=== PATIENT | female | born 1990 | race Caucasian/White ===

== ENCOUNTER → 2017-08-15 | Outpatient (CLI) | payer BC ==
[~2017-08-15] MED LIST: NORGTAB36 PO
[2017-08-15 15:19] LABS: URINE APPEARANCE TURBID (CLEAR); URINE BILIRUBIN NEG (NEG); URINE COLOR YELLOW; URINE EPITHELIAL CELL AUTO >30 /lpf (0-5); URINE NITRITE NEG (NEG); URINE SPECIFIC GRAVITY 1.031 (1.000-1.030); UROBILINOGEN NEG (NEG)
[2017-08-15 15:26] LABS: MANUAL MICROSCOPIC REQUIRED? NO; REVIEW REQ? NO
== END | disposition home or self-care (01) ==
LOC: C.LABSPEC 13:33
PROVIDERS: ATTEND Obstetrics & Gynecology
DX: Z34.01 Encounter for supervision of normal first pregnancy, first trimester (principal)

== ENCOUNTER → 2017-08-22 | Outpatient (CLI) | payer BC | END | disposition home or self-care (01) | LOC: C.PAPS 08:31 | PROVIDERS: ATTEND Obstetrics & Gynecology | DX: O30.043 Twin pregnancy, dichorionic/diamniotic, third trimester (principal); Z3A.00 Weeks of gestation of pregnancy not specified ==

== ENCOUNTER → 2017-08-22 | Outpatient (CLI) | payer BC ==
[2017-08-22 17:43] LABS: BASO % 0.3 %; BASO ABS # 0.02 K/uL (0-0.2); COMPLETE YES; EOS % 0.4 %; HEMATOCRIT 37.1 % (37-47); IG% 0.1 %; LYMPH % 20.5 %; LYMPH ABS # 1.53 K/uL (1.2-3.4); MEAN CELL VOLUME 93.5 fL (80-100); MEAN CORPUSCULAR HEMOGLOBIN 32.7 pg (25-34); MEAN PLATELET VOLUME 10.5 fL (7.4-10.4); MONO % 8.4 %; NEUT % 70.3 %; PLATELET COUNT 202 K/uL (130-400); RED BLOOD COUNT 3.97 M/uL (4.2-5.4); WHITE BLOOD COUNT 7.46 K/uL (4.8-10.8)
[2017-08-26 07:27] LABS: CHLAMYDIA TRACH RNA*** NOT DETECTED (NOT DETECTED); GC (NEIS GONORRHOEAE)RNA** NOT DETECTED (NOT DETECTED)
== END | disposition home or self-care (01) ==
LOC: C.LAB1850 16:34
PROVIDERS: ATTEND Obstetrics & Gynecology
DX: Z34.01 Encounter for supervision of normal first pregnancy, first trimester (principal); Z3A.00 Weeks of gestation of pregnancy not specified

== ENCOUNTER → 2017-10-17 | Outpatient (CLI) | payer BC | END | disposition home or self-care (01) | LOC: C.LAB1850 16:26 | PROVIDERS: ATTEND Obstetrics & Gynecology | DX: O30.042 Twin pregnancy, dichorionic/diamniotic, second trimester (principal); Z3A.00 Weeks of gestation of pregnancy not specified ==

== ENCOUNTER 2017-12-22 20:45 | Outpatient (CLI) | payer BC | END 2017-12-22 21:30 | disposition home or self-care (01) | LOC: C.LD 20:45 → C.OPB 20:45 | PROVIDERS: ATTEND Obstetrics & Gynecology | DX: O26.892 Other specified pregnancy related conditions, second trimester (principal); O30.042 Twin pregnancy, dichorionic/diamniotic, second trimester; Z3A.25 25 weeks gestation of pregnancy ==

== ENCOUNTER 2018-01-06 17:39 | Outpatient (CLI) | payer BC ==
[~2018-01-06] VITALS: Ht 165.1 cm; Wt 85.3 kg
[2018-01-06] MEDS ORDERED: PRENTAB26 PO (19:08)
[2018-01-06 19:09] VITALS: Ht 165.1 cm; Wt 85.3 kg
[2018-01-06] MEDS ORDERED: BETAMETH SOD PHOS/ACETATE IA 6 MG/ML ONE (20:11)
[2018-01-06] MEDS ORDERED: FLUCONAZOLE 50 MG TAB PO SCH (20:15)
[2018-01-06] MEDS ORDERED: BETAMETH SOD PHOS/ACETATE IA 6 MG/ML IM ONE (20:15)
[2018-01-07] MEDS ORDERED: NYSTATIN CR 15 GM TUBE EXT SCH (08:00)
== END 2018-01-06 21:10 | disposition home or self-care (01) ==
LOC: C.OPB 17:39 → C.LD 17:41 → C.OPB 21:10
PROVIDERS: ATTEND Obstetrics & Gynecology
DX: O26.899 Other specified pregnancy related conditions, unspecified trimester (principal); N89.8 Other specified noninflammatory disorders of vagina; O30.049 Twin pregnancy, dichorionic/diamniotic, unspecified trimester; Z3A.00 Weeks of gestation of pregnancy not specified

== ENCOUNTER 2018-01-07 19:45 | Outpatient (CLI) | payer BC ==
[~2018-01-07 19:45] MED LIST changes: -NORGTAB36 PO; +PRENTAB26 PO
[2018-01-07] MEDS ORDERED: BETAMETH SOD PHOS/ACETATE IA 6 MG/ML ONE (19:54)
[2018-01-07] MEDS ORDERED: BETAMETH SOD PHOS/ACETATE IA 6 MG/ML IM SCH (20:00)
--- NOTE | 2018-01-16 07:49 | EDITING REQUIRED CODING QUERY ---
DIAGNOSIS NEEDED To promote full compliance with coding requirements relating to patient care, physician participation is requested in all cases of systems programmer uncertainty. Please assist us with the question(s) below: Coding Question: The patient received care in labor and delivery on 01/07/18 as noted within the record. Please document the diagnosis that is being addressed by the medication/treatment. Provider Response: DIAGNOSIS: Di/di twins, labor WEEKS OF GESTATION: 27 01/20 Thank you for your assistance, Cyndee Hampton - Media Relations Manager
== END 2018-01-07 20:05 | disposition home or self-care (01) ==
LOC: C.OPB 19:45 → C.LD 19:45 → C.OPB 20:05
PROVIDERS: ATTEND Obstetrics & Gynecology
DX: O60.02 Preterm labor without delivery, second trimester (principal); O30.042 Twin pregnancy, dichorionic/diamniotic, second trimester; Z3A.27 27 weeks gestation of pregnancy

== ENCOUNTER → 2018-01-13 | Outpatient (CLI) | payer BC ==
[2018-01-13 16:37] LABS: HEMOGLOBIN 11.7 g/dL (12.0-16.0)
== END | disposition home or self-care (01) ==
LOC: C.LAB1850 15:50
PROVIDERS: ATTEND Obstetrics & Gynecology
DX: O30.043 Twin pregnancy, dichorionic/diamniotic, third trimester (principal)

== ENCOUNTER 2019-11-08 10:44 | Inpatient (IN) ==
[2019-11-08] MEDS ORDERED: OXYTOCIN 30 UNITS/500 ML BAG IV PRN ×2 (11:26→16:27)
--- NOTE | 2019-11-08 11:30 | Labor Progress Brief Note ---
Date of Service November 08, 2019 Subjective Patient admitted from home with contractions every 3 min. +FM, no LOF or VB. Chart reviewed. Rh pos, GBS neg, prior vaginal twins. Assessment & Plan (1) Normal labor and delivery: In active labor now. Admit, provide epidural per patient wishes. After epidural can AROM if not already occurred. Physical Exam Genitourinary: Manual OB Exam: + cervical dilation 7 cm, + cervical effacement 100%, + station 0 and + amniotic fluid (Bulging bag, intact) OB Exam Monitor Tracing: + category I Results & Data Vital Signs (Past 12 Hours) Vital Signs Temp Pulse Resp BP 11/08/19 10:57 98.4 F 87 18 132/74 11/08/19 10:52 87 132/74 Coding Level of Care Code None Diagnoses Normal labor and delivery O80
[2019-11-08] MEDS: LACTATED RINGER'S 1,000 ML IV PRN ×2 (11:42→13:52)
[2019-11-08] MEDS ORDERED: fentaNYL citrate 100 MCG/2 ML VIAL ONE (11:43)
[2019-11-08] MEDS ORDERED: ePHEDrine sulfate 50 MG/ML AMP ONE (11:43)
[2019-11-08] MEDS ORDERED: BUPIVACAINE 0.25% 30 ML VIAL ONE (11:44)
[2019-11-08] MEDS ORDERED: fentaNYL 2MCG/ML ROPIV 1.25MG/ML 100 ML BAG EPI ONE (11:44)
[2019-11-08 11:49] LABS: Hematocrit (blood only) 37.6 % (37-47); Mean Corpuscular Hemoglobin 33.9 pg (25-34); Mean Corpuscular Volume 97.9 fL (80-100); Mean Platelet Volume 10.8 fL (7.4-10.4); Platelet Count 115 K/uL (130-400); RDW Coefficient of Variation 13.2 % (11.5-14.5); RDW Standard Deviation 47.3 fL (36.4-46.3); Red Blood Count 3.84 M/uL (4.2-5.4); White Blood Count 9.36 K/uL (4.8-10.8)
[2019-11-08 12:03] LABS: Mean Corpuscular Hgb Conc 34.6 g/dL (32-36)
--- NOTE | 2019-11-08 12:22 | Anesthesiology Consultation ---
Date of Service November 08, 2019 Assessment & Plan (1) Encounter for pre-operative examination: Chart Review Chart Review: Acceptable Risk for Labor Epidural Consults Requested none ASA ASA2 Proposed Anesthesia Anesthesia Type: Labor Epidural Risk / Benefits Reviewed With: PT / POA / Parent / Guardian, Accepts Plan and Informed Consent Obtained History Height/Weight Height: 5 ft 6 in Weight: 95.708 kg Allergies Allergy/AdvReac Type Severity Reaction Status Date / Time benzoyl peroxide Allergy Verified 11/03/19 16:40 [From Benzamycin] erythromycin base Allergy Verified 11/03/19 16:40 [From Benzamycin] nickel AdvReac Intermediate RASH Verified 11/03/19 16:40 latex AdvReac Mild RASH Verified 11/03/19 16:40 Medications Home Medications Medication Instructions Recorded Confirmed Last Taken prenat.vits,damion,qct-jnqb-zijml 1 tab PO DAILY 04/14/19 11/08/19 11/07/19 21:30 Active Medications Generic Name Dose Route Start Last Admin Trade Name Freq PRN Reason Stop Dose Admin Lactated Ringer's 1,000 mls @ 125 mls/hr 11/08/19 11:26 11/08/19 11:42 Lr IV 11/10/19 11:25 999 mls/hr .Q8H PRN Administration L&D Protocol Protocol Past Medical History Medical History Encounter for anatomic survey (Inactive) H/O vaginal bleeding Ovarian cyst Perioral dermatitis Exercise / Class Metabolic Activity II 4-5 Yardwork/Stairs/Walk up hill Past Family History Family History Grandmother (Maternal) Breast cancer Dyslipidemia Hypertension Mother Heart disease Grandfather (Maternal) Colorectal cancer Sister Hypertension Lupus erythematosus Kidney stones Other VACTERL syndrome Past Surgical History Surgical History [place] teeth extracted Past Anesthesia History No Hx of Anesthesia Complications and No Family Hx of Anesthesia Complications History of PONV No Hx of PONV and No Hx of Motion Sickness Social History Smoking Status: Never smoker Do You Dip or Chew Tobacco: No Hx Alcohol Use: No Hx Substance Use: No substance use type: does not use Physical Exam Vital Signs Last Vital Signs Temp 98.4 F 11/08/19 10:57 Pulse 77 11/08/19 12:16 Resp 18 11/08/19 10:57 BP 115/63 11/08/19 12:16 Pulse Ox 98 11/08/19 12:15 ENMT Mouth: + chipped teeth Thyromental Distance: > or= 3.5 Finger Breadths Mallampati Class: II Neck normal visual inspection Respiratory normal respiratory effort Auscultation: lungs clear to auscultation bilaterally Cardiovascular Rate/Rhythm: regular rate and regular rhythm Testing Laboratory Results 11/08/19 11:36
[2019-11-08] MEDS ORDERED: NALOXONE HCL 0.4 MG/1 ML VIAL/CARP IV PRN (12:42)
[2019-11-08] MEDS ORDERED: ONDANSETRON INJ 2 MG/ML 2 ML VIAL IV PRN (12:42)
[2019-11-08] MEDS ORDERED: NALBUPHINE HCL INJ 10 MG/ML AMP IV PRN (12:42)
[2019-11-08] MEDS ORDERED: DiphenhydrAMINE HCL 50 MG/ML VIAL IV PRN (12:42)
[2019-11-08] MEDS ORDERED: NALOXONE HCL 1 MG in SODIUM CHLORIDE 0.9% 1000ML 1,000 ML IV PRN (12:42)
[2019-11-08] MEDS ORDERED: ePHEDrine sulfate 50 MG/ML AMP IV PRN (12:42)
[2019-11-08] MEDS ORDERED: fentaNYL 2MCG/ML ROPIV 1.25MG/ML 100 ML BAG EPI PRN (12:42)
--- NOTE | 2019-11-08 13:43 | Labor Progress Brief Note ---
Date of Service November 08, 2019 Subjective Comfortable with epidural. Assessment & Plan (1) Normal labor and delivery: Ruptured, epiduralized, near delivery. Anticipate . Physical Exam Genitourinary: Manual OB Exam: + cervical dilation 9 cm, + cervical effacement 100%, + station + 1 and + amniotic fluid (AROM copious mec) Results & Data Vital Signs (Past 12 Hours) Vital Signs Temp Pulse Resp BP Pulse Ox 11/08/19 13:36 76 119/59 L 11/08/19 13:35 79 99 11/08/19 13:34 94 H 118/73 11/08/19 13:32 75 110/58 L 11/08/19 13:30 79 120/61 98 11/08/19 13:28 111/58 L 11/08/19 13:26 84 127/63 11/08/19 13:25 79 100 11/08/19 13:24 88 115/63 11/08/19 13:22 81 113/56 L 11/08/19 13:20 76 115/58 L 99 11/08/19 13:18 80 108/62 11/08/19 13:16 82 110/66 11/08/19 13:15 73 98 11/08/19 13:14 81 115/68 11/08/19 13:12 81 112/70 11/08/19 13:10 90 113/67 99 11/08/19 13:08 80 115/63 11/08/19 13:07 84 106/58 L 11/08/19 13:05 89 98 11/08/19 13:03 76 107/56 L 11/08/19 13:00 83 97 11/08/19 12:55 89 98 11/08/19 12:54 71 108/56 L 11/08/19 12:52 78 110/60 11/08/19 12:50 79 106/59 L 99 11/08/19 12:48 82 109/83 11/08/19 12:46 86 107/62 11/08/19 12:45 78 98 11/08/19 12:44 83 111/63 11/08/19 12:42 72 115/66 11/08/19 12:40 65 112/66 98 11/08/19 12:36 71 106/67 11/08/19 12:35 77 98 11/08/19 12:33 73 114/73 11/08/19 12:30 75 98 11/08/19 12:25 87 99 11/08/19 12:24 118/67 11/08/19 12:20 82 99 11/08/19 12:16 77 115/63 11/08/19 12:15 87 98 11/08/19 12:10 81 98 11/08/19 10:57 98.4 F 87 18 132/74 11/08/19 10:52 87 132/74 Coding Level of Care Code None Diagnoses Normal labor and delivery O80
[2019-11-08] MEDS ORDERED: DIPHTHERIA/TETANUS/PERTUSSIS 0.5 ML SYR/VIAL IM ONE (16:27)
[2019-11-08] MEDS ORDERED: HYDROCORTISONE ACETATE 25 MG SUPP PR PRN (16:27)
[2019-11-08] MEDS ORDERED: SUPERCREAM 0.870% 15 GM JAR EXT PRN (16:27)
[2019-11-08] MEDS ORDERED: bisacodyL 10 MG SUPP PR PRN (16:27)
[2019-11-08] MEDS ORDERED: ACETAMINOPHEN 325 MG TAB PO PRN (16:27)
[2019-11-08] MEDS ORDERED: BENZOCAINE 20% AER SPR 82.5 GM CAN EXT PRN (16:27)
[2019-11-08] MEDS ORDERED: OXYCODONE/ACETAMINOPHEN 5mg/325mg TAB PO PRN (16:27)
[2019-11-08] MEDS ORDERED: LACTATED RINGER'S 1,000 ML IV SCH (16:30)
--- NOTE | 2019-11-08 16:34 | Delivery Summary ---
Vaginal Delivery Summary Date of Service November 08, 2019 Vaginal Delivery Summary DIAGNOSES: 1. Menard intrauterine at 40w3d gestation. 2. Spontaneous onset of labor. 3. Group B Streptococcus Neg. PROCEDURE: Spontaneous vaginal delivery and repair of second degree laceration. SURGEON: La Nena Ramirez MD. TRANSMISSION SUPERVISOR: None. ESTIMATED BLOOD LOSS: 350 mL. COMPLICATIONS: None. PLACENTA: Spontaneous and intact with a 3-vessel cord. DISPOSITION: Stable to labor and delivery. DESCRIPTION: The patient pushed well and brought the head to in OA position. The infant's head was allowed to deliver with contraction force and no further active pushing, with the perineum protected during this time. The shoulders delivered easily with a maternal pushing effort. There was no nuchal cord. The left shoulder was anterior. The shoulders and body delivered without any difficulty, and the was placed on the maternal abdomen. It was vigorous and moving all extremities, and making respiratory efforts. The cord was doubly clamped by the MD and then cut by the FOB. The placenta delivered spontaneously and was noted to be intact and with a 3VC. The cervix, vagina and perineum were examined and were found to have a second-degree laceration which was repaired using vicryl in the usual manner. The fundus was firm and lochia minimal immediately after delivery.
--- NOTE | 2019-11-08 16:44 | Anesthesia Procedure Note ---
Date of Service November 08, 2019 Anesthesia Post Epidural Note Vital Signs Vital Signs: Temp Pulse Resp BP Pulse Ox 97.9 F 81 20 110/59 L 94 11/08/19 15:50 11/08/19 16:38 11/08/19 16:22 11/08/19 16:38 11/08/19 15:50 Pain Intensity Lower Abdomen: Pain Intensity: 2 Notes Mental Status: alert / awake / arousable and participated in evaluation Nausea / Vomiting: adequately controlled Pain: adequately controlled Airway Patency, RR, SpO2: stable & adequate BP & HR: stable & adequate Hydration State: stable & adequate Neuraxial Anesthesia: was administered and sensory block is resolving Anesthetic Complications: no major complications apparent and Pt Satisfied with anesthetic care Epidural: Removed without complications and With tip intact
[2019-11-08] MEDS: IBUPROFEN 600 MG TAB PO PRN (20:39)
[2019-11-08] MEDS: DOCUSATE SODIUM 100 MG CAP PO SCH (20:40)
[2019-11-09] MEDS: IBUPROFEN 600 MG TAB PO PRN ×3 (03:22→19:32)
--- NOTE | 2019-11-09 05:58 | Obstetrical Progress Note ---
Date of Service <Elvin Rios MD - Last Filed: 11/09/19 06:44> November 09, 2019 Assessment & Plan <Elvin Rios MD - Last Filed: 11/09/19 06:44> (1) Normal labor and delivery: PPD#1 - continue routine care - encourage ambulation, and oral intake - desires to work with counselor Subjective <Elvin Rios MD - Last Filed: 11/09/19 06:44> Ms. Stern is a 29 y/o female ; PPD #1 following spontaneous vaginal delivery; doing well this morning; having minimal abdominal cramping/pain; voiding well; tolerating meals overnight; and able to ambulate some; some persistent spotting with intermittent improvement this morning. Review of Systems Constitutional: denies fever; chills; sweats; headache Respiratory: denies shortness of breath, difficulty breathing Cardiac: denies chest pain; palpitations; chest pressure Breast: denies breast pain : denies dysuria Physical Exam <Elvin Rios MD - Last Filed: 11/09/19 06:44> General: alert; oriented; no acute distress Cardiac: RRR; no m/g/r Respiratory: CTAB a/p; no wheezes/rales/rhonchi; no increased work of breathing; symmetrical chest rise; no respiratory distress Abdomen: soft; NT/ND; bowel sounds positive Uterus: uterine fundus firm; palpable 3cm below umbilicus Lower extrem: no lower extremity edema or swelling; no deep calf pain; Subhash's sign negative b/l Results & Data <Elvin Rios MD - Last Filed: 11/09/19 06:44> Vital Signs (Past 12 Hours) Vital Signs Temp Pulse Pulse Resp BP BP Pulse Ox 11/09/19 03:20 36.6 C 66 18 114/79 98 11/08/19 23:40 36.8 C 79 18 110/70 97 11/08/19 18:46 18 11/08/19 18:34 36.7 C 80 18 112/69 100 11/08/19 18:16 103 H 114/64 11/08/19 18:08 90 104/58 L Medications Administered Current Inpatient Medications Acetaminophen (Tylenol) 650 mg PO Q6H PRN PRN Reason: Pain/FELICIANO/Fever Stop: 12/08/19 16:26 Benzocaine (Dermoplast Pain Relieving [place]) 1 appln EXT PRN PRN PRN Reason: Perineal Discomfort Stop: 12/08/19 16:26 Last Admin: 11/08/19 18:18 Dose: 82.5 appln Documented by: Bisacodyl (Dulcolax) 5 mg PO 1999 [facility] Stop: 11/09/19 20:01 Bisacodyl (Dulcolax) 10 mg AR DAILY PRN PRN Reason: No BM on 2nd post- day Stop: 12/08/19 16:26 Cocaine HCl (Supercream 0.870%) 1 gm EXT BID PRN PRN Reason: Hemorrhoidal Inflammation Stop: 11/22/19 16:26 Last Admin: 11/09/19 03:22 Dose: 1 appln Documented by: Docusate Sodium (Colace) 100 mg PO DAILY@08, [facility] Stop: 12/08/19 20:59 Last Admin: 11/08/19 20:40 Dose: 100 mg Documented by: Hydrocortisone (Anusol Hc) 25 mg AR BID PRN PRN Reason: Hemorrhoidal Inflammation Stop: 12/08/19 16:26 Oxytocin (Pitocin) 30 units in 500 mls @ 333.333 mls/hr IV .Q1H30M PRN; Protocol PRN Reason: Bleeding Control Stop: 12/08/19 16:26 Lactated Ringer's (Lr) 1,000 mls @ 125 mls/hr IV .Q8H [facility] Stop: 12/08/19 16:29 Ibuprofen (Motrin) 600 mg PO Q4H PRN PRN Reason: Pain/FELICIANO/Cramping/Fever Stop: 12/08/19 16:26 Last Admin: 11/09/19 03:22 Dose: 600 mg Documented by: Oxycodone/Acetaminophen (Percocet 5mg/325mg) 1 tab PO Q4H PRN PRN Reason: Pain not relieved by... Stop: 11/22/19 16:26 Prenat Multivit/[place]/Iron/Folic Ac ( Vitamin) 1 tab PO DAILY@08 [facility] Stop: 12/09/19 07:59 <La Nena Ramirez MD - Last Filed: 11/09/19 06:56> Co-Signing Physician Notes I have reviewed the resident's note and examined the patient myself, and agree with the note above. Resident Activity Tracking <Elvin Rios MD - Last Filed: 11/09/19 06:44> Resident Involvement: Resident Care Provided Care Provided: Adult [facility] Medicine
[2019-11-09 06:31] LABS: Hematocrit (blood only) 32.3 % (37-47); Hemoglobin 11.1 g/dL (12.0-16.0); Mean Corpuscular Hemoglobin 33.8 pg (25-34); Mean Corpuscular Hgb Conc 34.4 g/dL (32-36); Mean Corpuscular Volume 98.5 fL (80-100); RDW Coefficient of Variation 13.4 % (11.5-14.5); RDW Standard Deviation 48.1 fL (36.4-46.3); Red Blood Count 3.28 M/uL (4.2-5.4)
[2019-11-09 06:58] LABS: Mean Platelet Volume 10.8 fL (7.4-10.4); Platelet Count 91 K/uL (130-400); Platelet Estimate Decreased (Normal)
[2019-11-09] MEDS: PRENATAL VITAMIN 1 TAB PO SCH (08:34)
[2019-11-09] MEDS: DOCUSATE SODIUM 100 MG CAP PO SCH ×2 (08:34→21:02)
[2019-11-09] MEDS ORDERED: NON-FORMULARY MEDICATION (Prenat.Vits,Cal,Min-Iron-Folic 1 TAB) PO SCH (09:00)
[2019-11-09] MEDS ORDERED: bisacodyL 5 MG TABEC PO SCH (20:00)
--- NOTE | 2019-11-10 05:52 | Obstetrical Progress Note ---
Date of Service <Elvin Rios MD - Last Filed: 11/10/19 07:11> November 10, 2019 Assessment & Plan <Elvin Rios MD - Last Filed: 11/10/19 07:11> (1) Normal labor and delivery: PPD#2 - encourage ambulation, and oral intake - follow-up in 6 weeks Subjective <Elvin Rios MD - Last Filed: 11/10/19 07:11> Ms. Stern is a 29 y/o female ; PPD #2 following spontaneous vaginal delivery; doing well this morning; having minimal abdominal cramping/pain; voiding well; tolerating meals overnight; and able to ambulate some; some persistent spotting with intermittent improvement this morning. Review of Systems Constitutional: denies fever; chills; sweats; headache Respiratory: denies shortness of breath, difficulty breathing Cardiac: denies chest pain; palpitations; chest pressure Breast: denies breast pain : denies dysuria Physical Exam <Elvin Rios MD - Last Filed: 11/10/19 07:11> General: alert; oriented; no acute distress Cardiac: RRR; no m/g/r Respiratory: CTAB a/p; no wheezes/rales/rhonchi; no increased work of breathing; symmetrical chest rise; no respiratory distress Abdomen: soft; NT/ND; bowel sounds positive Uterus: uterine fundus firm; palpable 3cm below umbilicus Lower extrem: no lower extremity edema or swelling; no deep calf pain; Subhash's sign negative b/l Results & Data <Elvin Rios MD - Last Filed: 11/10/19 07:11> Vital Signs (Past 12 Hours) Vital Signs Temp Pulse Resp BP 11/10/19 00:35 36.7 C 71 18 110/67 Laboratory Results 11/09/19 Range/Units 06:15 WBC 7.70 (4.8-10.8) K/uL RBC 3.28 L (4.2-5.4) M/uL Hgb 11.1 L (12.0-16.0) g/dL Hct 32.3 L (37-47) % MCV 98.5 (80-100) fL MCH 33.8 (25-34) pg MCHC 34.4 (32-36) g/dL RDW Std Deviation 48.1 H (36.4-46.3) fL RDW Coeff of Agustin 13.4 (11.5-14.5) % Plt Count 91 L (130-400) K/uL MPV 10.8 H (7.4-10.4) fL Platelet Estimate Decreased L (Normal) Medications Administered Current Inpatient Medications Acetaminophen (Tylenol) 650 mg PO Q6H PRN PRN Reason: Pain/FELICIANO/Fever Stop: 12/08/19 16:26 Benzocaine (Dermoplast Pain Relieving [place]) 1 appln EXT PRN PRN PRN Reason: Perineal Discomfort Stop: 12/08/19 16:26 Last Admin: 11/08/19 18:18 Dose: 82.5 appln Documented by: Bisacodyl (Dulcolax) 10 mg MD DAILY PRN PRN Reason: No BM on 2nd post- day Stop: 12/08/19 16:26 Cocaine HCl (Supercream 0.870%) 1 gm EXT BID PRN PRN Reason: Hemorrhoidal Inflammation Stop: 11/22/19 16:26 Last Admin: 11/09/19 03:22 Dose: 1 appln Documented by: Docusate Sodium (Colace) 100 mg PO DAILY@08,21 [facility] Stop: 12/08/19 20:59 Last Admin: 11/09/19 21:02 Dose: 100 mg Documented by: Hydrocortisone (Anusol Hc) 25 mg MD BID PRN PRN Reason: Hemorrhoidal Inflammation Stop: 12/08/19 16:26 Oxytocin (Pitocin) 30 units in 500 mls @ 333.333 mls/hr IV .Q1H30M PRN; Protocol PRN Reason: Bleeding Control Stop: 12/08/19 16:26 Lactated Ringer's (Lr) 1,000 mls @ 125 mls/hr IV .Q8H [facility] Stop: 12/08/19 16:29 Ibuprofen (Motrin) 600 mg PO Q4H PRN PRN Reason: Pain/FELICIANO/Cramping/Fever Stop: 12/08/19 16:26 Last Admin: 11/09/19 19:32 Dose: 600 mg Documented by: Oxycodone/Acetaminophen (Percocet 5mg/325mg) 1 tab PO Q4H PRN PRN Reason: Pain not relieved by... Stop: 11/22/19 16:26 Prenat Multivit/[employer]/Iron/Folic Ac ( Vitamin) 1 tab PO DAILY@08 [facility] Stop: 12/09/19 07:59 Last Admin: 11/09/19 08:34 Dose: 1 tab Documented by: <Chris Gray Jr, MD, FACOG - Last Filed: 11/10/19 07:47> Co-Signing Physician Notes Resident Physician Supervision Note: I was present with Dr. Rios during the history and exam. I discussed the case with the resident and agree with the findings and plan as documented in the no te. Any exceptions or clarifications are listed here: Patient desires d/c. Instructions given, f/u in 6 weeks Documented By: Chris Gray Jr, MD, FACOG Resident Activity Tracking <Elvin Rios MD - Last Filed: 11/10/19 07:11> Resident Involvement: Resident Care Provided Care Provided: Adult [facility] Medicine
[2019-11-10 07:33] LABS: Hematocrit (blood only) 32.5 % (37-47); Hemoglobin 11.2 g/dL (12.0-16.0); Mean Corpuscular Hemoglobin 34.5 pg (25-34); Mean Corpuscular Hgb Conc 34.5 g/dL (32-36); RDW Coefficient of Variation 13.4 % (11.5-14.5); RDW Standard Deviation 48.6 fL (36.4-46.3); Red Blood Count 3.25 M/uL (4.2-5.4); White Blood Count 7.29 K/uL (4.8-10.8)
[2019-11-10 07:39] LABS: Mean Platelet Volume 10.5 fL (7.4-10.4); Platelet Count 98 K/uL (130-400)
[2019-11-10] MEDS: DOCUSATE SODIUM 100 MG CAP PO SCH (08:46)
[2019-11-10] MEDS: PRENATAL VITAMIN 1 TAB PO SCH (08:46)
[2019-11-10] MEDS: IBUPROFEN 600 MG TAB PO PRN (08:52)
== END 2019-11-10 11:33 | disposition home or self-care (01) | DRG 807 ==
LOC: OPB 10:44 → 4S1 10:45 → 4S2 18:35